=== PATIENT | female | born 1950 | race Caucasian/White ===

== ENCOUNTER → 2017-06-18 | Outpatient (CLI) | payer BC ==
[~2017-06-18] MED LIST: LEVOTHYROXINE0.05 MG PO; SIMVASTATIN40 MG PO; TRIAMTERENE/HCT1 TAB PO
== END ==
LOC: COL.RAD 10:20
DX: K57.32 Diverticulitis of large intestine without perforation or abscess without bleeding (principal); Z90.710 Acquired absence of both cervix and uterus
CPT/HCPCS: J7050; Q9967

== ENCOUNTER → 2018-02-15 | Outpatient (CLI) | payer BC | LOC: SUN.DIA 10:00 | DX: E11.9 Type 2 diabetes mellitus without complications (principal); E78.5 Hyperlipidemia, unspecified; I10 Essential (primary) hypertension; Z68.27 Body mass index [BMI] 27.0-27.9, adult; Z71.3 Dietary counseling and surveillance | CPT/HCPCS: G0108 ==

== ENCOUNTER → 2018-03-02 | Outpatient (CLI) | payer BC | LOC: SUN.DIA 11:57 | DX: E11.9 Type 2 diabetes mellitus without complications (principal); E78.5 Hyperlipidemia, unspecified; I10 Essential (primary) hypertension | CPT/HCPCS: G0109 ==

== ENCOUNTER → 2018-03-09 | Outpatient (CLI) | payer BC | LOC: SUN.DIA 13:18 | DX: E11.9 Type 2 diabetes mellitus without complications (principal); E78.5 Hyperlipidemia, unspecified; I10 Essential (primary) hypertension | CPT/HCPCS: G0109 ==

== ENCOUNTER → 2018-03-15 | Outpatient (CLI) | payer BC | LOC: SUN.DIA 08:29 | DX: E11.9 Type 2 diabetes mellitus without complications (principal); E78.5 Hyperlipidemia, unspecified; I10 Essential (primary) hypertension | CPT/HCPCS: G0108 ==

== ENCOUNTER → 2018-03-16 | Outpatient (CLI) | payer BC | LOC: SUN.DIA 16:33 | DX: E11.9 Type 2 diabetes mellitus without complications (principal); E78.5 Hyperlipidemia, unspecified; I10 Essential (primary) hypertension | CPT/HCPCS: G0109 ==

== ENCOUNTER → 2018-03-23 | Outpatient (CLI) | payer BC | LOC: SUN.DIA 11:42 | DX: E11.9 Type 2 diabetes mellitus without complications (principal); E78.5 Hyperlipidemia, unspecified; I10 Essential (primary) hypertension | CPT/HCPCS: G0109 ==

== ENCOUNTER 2021-11-16 17:40 | Emergency (ER) | payer MEDICARE ==
[~2021-11-16] VITALS: Ht 160 cm; Wt 65.9 kg
[2021-11-16 18:04] VITALS: TEMP 97.2
[2021-11-16] MEDS ORDERED: AMOXICILLIN 8751 TAB PO (18:33)
[2021-11-16 18:50] VITALS: BP 161/82; PULSE 80
== END 2021-11-16 18:57 | disposition home or self-care (01) ==
LOC: COL.ER 17:40
DX: S61.256A Open bite of right little finger without damage to nail, initial encounter (principal); Z88.1 Allergy status to other antibiotic agents; W54.0XXA Bitten by dog, initial encounter

== ENCOUNTER 2022-03-27 09:13 | Day surgery (SDC) | payer MEDICARE ==
[~2022-03-27] VITALS: Ht 160 cm; Wt 63.0 kg
[~2022-03-27 09:13] MED LIST changes: +AMOXICILLIN 8751 TAB PO; +DYAZIDE 25 MG-31 CAP PO; -LEVOTHYROXINE0.05 MG PO; -SIMVASTATIN40 MG PO; +SYNTHROID0.05 MG/TA PO; -TRIAMTERENE/HCT1 TAB PO; +ZOCOR 40MG40 MG PO
[2022-03-27] MEDS ORDERED: CALCIUM 600 MG1 EAC2 PO (11:48)
[2022-03-27] MEDS ORDERED: MULTI VITAMINS1 TAB PO (11:49)
[2022-03-27 13:05] VITALS: BP 161/64; PULSE 83; TEMP 97
[2022-03-27 13:20] VITALS: BP 152/79; PULSE 84; TEMP 98
[2022-03-27 15:51] VITALS: BP 154/77; PULSE 88; TEMP 97.3
== END 2022-03-27 13:56 ==
LOC: SDCO 09:13
DX: D12.2 Benign neoplasm of ascending colon (principal); K57.30 Diverticulosis of large intestine without perforation or abscess without bleeding; K64.8 Other hemorrhoids
CPT/HCPCS: J2405; J2704; J7030